=== PATIENT | female | born 1980 | race Caucasian/White ===

== ENCOUNTER → 2019-12-18 10:16 | Outpatient (BNVA) | payer OTHER, SELFPAY | PROVIDERS: PCP Family Medicine; Visit Provider Nurse Practitioner Family | DX: Z20.828 Contact with and (suspected) exposure to other viral communicable diseases (principal); J06.9 Acute upper respiratory infection, unspecified | CPT/HCPCS: 87635 ==

== ENCOUNTER → 2019-12-27 11:07 | Outpatient (BNVA) | payer OTHER, SELFPAY | PROVIDERS: PCP Family Medicine; Visit Provider Nurse Practitioner Family | DX: R05 Cough (principal); Z11.59 Encounter for screening for other viral diseases | CPT/HCPCS: 71046; 87635 ==

== ENCOUNTER → 2020-06-09 13:43 | Outpatient (BNVA) | payer SELFPAY | PROVIDERS: PCP Family Medicine; Visit Provider Nurse Practitioner Family | DX: M25.50 Pain in unspecified joint (principal) | CPT/HCPCS: 80053; 85025; 85651; 86140 ==

== ENCOUNTER → 2020-07-31 08:55 | Outpatient (BNVA) | payer SELFPAY | PROVIDERS: Visit Provider Internal Medicine Rheumatology | DX: M19.041 Primary osteoarthritis, right hand (principal); M19.042 Primary osteoarthritis, left hand; Z79.899 Other long term (current) drug therapy; Z11.59 Encounter for screening for other viral diseases; Z11.1 Encounter for screening for respiratory tuberculosis; B07.9 Viral wart, unspecified; F17.210 Nicotine dependence, cigarettes, uncomplicated | CPT/HCPCS: 99204 ==

== ENCOUNTER 2020-07-31 10:29 | Outpatient (CLI) | payer SELFPAY ==
--- NOTE | 2020-07-31 10:42 | XR_ITS ---
WS: [id number] Pelvis, AP view, 07/31/2020 Clinical Data: Z79.899 - Other intermediate teacher (current) drug therapy Comparison: None. Findings: No fractures or dislocations are seen. The SI joints and pubic symphysis are intact. The soft tissues are not remarkable. Fallopian tube closure devices are present. The hips show prominent acetabular lips. XR/XR pelvis 1-2V* 14980 Impression: Minimal arthritic change of the acetabula of both hips.
--- NOTE | 2020-07-31 10:42 | XR_ITS ---
WS: [id number] Left foot, 3 views, 07/31/2020 Clinical Data: Z79.899 - Other lobsterman (current) drug therapy Comparison: None. Findings: No fractures or dislocations are seen. No bone destruction or erosion is noted. The joint spaces and soft tissues are normal. No periarticular demineralization or calcifications are seen. XR/XR foot LT min 3V* [id number] Impression: Negative left foot.
--- NOTE | 2020-07-31 10:42 | XR_ITS ---
WS: [id number] Right hand, 3 views, 07/31/2020 Clinical Data: Z79.899 - Other assisted (current) drug therapy Comparison: None. Findings: No fractures or dislocations are seen. The soft tissues are unremarkable. The joint space s are normal No periarticular demineralization or calcifications are seen. XR/XR hand RT min 3V* [id number] Impression: Negative right hand.
--- NOTE | 2020-07-31 10:42 | XR_ITS ---
WS: [id number] Right foot, 3 views, 07/31/2020 Clinical Data: Z79.899 - Other custodial (current) drug therapy Comparison: None. Findings: No fractures or dislocations are seen. No bone destruction or erosion is noted. The joint spaces and soft tissues are normal. No periosteal demineralization or calcifications are seen. XR/XR foot RT min 3V* 60749 Impression: Negative right foot.
--- NOTE | 2020-07-31 10:42 | XR_ITS ---
WS: [id number] Left hand, 3 views, 07/31/2020 Clinical Data: Z79.899 - Other medical terminologist (current) drug therapy Comparison: None. Findings: No fractures or dislocations are seen. The soft tissues are unremarkable. The joint spaces are normal No periarticular demineralization or calcifications are seen. XR/XR hand LT min 3V* [id number] Impression: Negative left hand.
[2020-07-31 12:01] LABS: 25 Hydroxy Vitamin D 11 ng/mL (30-100); C Reactive Protein 4.9 mg/L (0.0-4.9)
[2020-07-31 12:16] LABS: Erythrocyte Sedimentation Rate 22 mm/hr (0-15)
[2020-07-31 12:24] LABS: Hepatitis B Core AB, Total Non-Reactive (Nonreactive); Hepatitis B Surface Antigen Non-Reactive (Nonreactive); Hepatitis C Virus Antibody Non-Reactive (Nonreactive)
[2020-08-01 12:17] LABS: Cyclic Citrullinated Peptide <16 UNITS
[2020-08-01 13:58] LABS: Anti-Nuclear Antibody Screen NEGATIVE (NEGATIVE)
[2020-08-02 12:58] LABS: Quantiferon Mitogen 8.34 IU/mL; Quantiferon Nil 0.01 IU/mL; Quantiferon TB Gold NEGATIVE (NEGATIVE)
== END 2020-07-31 10:30 | disposition home or self-care (01) ==
PROVIDERS: Visit Provider Internal Medicine Rheumatology
DX: Z79.899 Other long term (current) drug therapy (principal); Z11.59 Encounter for screening for other viral diseases; Z11.1 Encounter for screening for respiratory tuberculosis
CPT/HCPCS: 36415; 72170; 73130; 73630; 82306; 85651; 86038; 86140; 86431; 86480; 86704; 86803; 87340

== ENCOUNTER → 2020-09-02 14:51 | Outpatient (BNVA) | payer SELFPAY | PROVIDERS: Visit Provider Internal Medicine Rheumatology | DX: M19.041 Primary osteoarthritis, right hand (principal); M19.042 Primary osteoarthritis, left hand; Z79.899 Other long term (current) drug therapy; B07.9 Viral wart, unspecified; F17.210 Nicotine dependence, cigarettes, uncomplicated | CPT/HCPCS: 99214 ==

== ENCOUNTER → 2020-12-25 13:23 | Outpatient (BNVA) | payer MEDICAID, SELFPAY | PROVIDERS: Visit Provider Internal Medicine Rheumatology | DX: M19.90 Unspecified osteoarthritis, unspecified site (principal); Z79.899 Other long term (current) drug therapy | CPT/HCPCS: 80076; 82565; 85025; 86140 ==

== ENCOUNTER → 2021-01-01 12:59 | Outpatient (BNVA) | payer MEDICAID, SELFPAY | PROVIDERS: Visit Provider Internal Medicine Rheumatology | DX: M19.041 Primary osteoarthritis, right hand (principal); M19.042 Primary osteoarthritis, left hand; M25.50 Pain in unspecified joint; Z79.899 Other long term (current) drug therapy; B07.9 Viral wart, unspecified; F17.210 Nicotine dependence, cigarettes, uncomplicated | CPT/HCPCS: 99214 ==

== ENCOUNTER → 2021-01-27 14:29 | Outpatient (BNVA) | payer MEDICAID, SELFPAY | PROVIDERS: Visit Provider Nurse Practitioner Family | DX: Z20.822 Contact with and (suspected) exposure to COVID-19 (principal) | CPT/HCPCS: 87635 ==

== ENCOUNTER → 2021-02-02 09:53 | Outpatient (BNVA) | payer MEDICAID, SELFPAY | PROVIDERS: Visit Provider Internal Medicine Rheumatology | DX: M19.90 Unspecified osteoarthritis, unspecified site (principal); Z79.899 Other long term (current) drug therapy | CPT/HCPCS: 80076; 82565; 85025; 86140 ==

== ENCOUNTER → 2021-04-28 09:26 | Outpatient (BNVA) | payer MEDICAID, SELFPAY | PROVIDERS: Visit Provider Internal Medicine Rheumatology | DX: M19.90 Unspecified osteoarthritis, unspecified site (principal); Z79.899 Other long term (current) drug therapy | CPT/HCPCS: 80076; 82565; 85025; 86140 ==

== ENCOUNTER → 2021-05-05 13:53 | Outpatient (BNVA) | payer MEDICAID, SELFPAY | PROVIDERS: Visit Provider Internal Medicine Rheumatology | DX: M19.90 Unspecified osteoarthritis, unspecified site (principal); M06.041 Rheumatoid arthritis without rheumatoid factor, right hand; M06.042 Rheumatoid arthritis without rheumatoid factor, left hand; Z79.899 Other long term (current) drug therapy; Z79.52 Long term (current) use of systemic steroids; B07.9 Viral wart, unspecified; F15.21 Other stimulant dependence, in remission; Z71.85 Encounter for immunization safety counseling | CPT/HCPCS: 99214 ==

== ENCOUNTER → 2021-05-15 13:48 | Outpatient (BNVA) | payer OTHER, MEDICAID, SELFPAY | PROVIDERS: Visit Provider Psychiatry & Neurology Psychiatry | DX: F33.42 Major depressive disorder, recurrent, in full remission (principal); F90.0 Attention-deficit hyperactivity disorder, predominantly inattentive type; G47.33 Obstructive sleep apnea (adult) (pediatric); F15.21 Other stimulant dependence, in remission; F17.210 Nicotine dependence, cigarettes, uncomplicated | CPT/HCPCS: 99214 ==

== ENCOUNTER → 2021-06-03 08:43 | Outpatient (BNVA) | payer MEDICAID, SELFPAY | PROVIDERS: Visit Provider Nurse Practitioner Family | DX: M19.90 Unspecified osteoarthritis, unspecified site (principal); Z79.899 Other long term (current) drug therapy; M06.041 Rheumatoid arthritis without rheumatoid factor, right hand; M06.042 Rheumatoid arthritis without rheumatoid factor, left hand | CPT/HCPCS: 80076; 82565; 85025; 86140 ==

== ENCOUNTER → 2021-06-12 11:06 | Outpatient (BNVA) | payer OTHER, MEDICAID, SELFPAY | PROVIDERS: Visit Provider Psychiatry & Neurology Psychiatry | DX: F33.42 Major depressive disorder, recurrent, in full remission (principal); F90.0 Attention-deficit hyperactivity disorder, predominantly inattentive type; G47.33 Obstructive sleep apnea (adult) (pediatric); F17.210 Nicotine dependence, cigarettes, uncomplicated | CPT/HCPCS: 99214 ==

== ENCOUNTER → 2021-08-07 14:02 | Outpatient (BNVA) | payer OTHER, MEDICAID, SELFPAY | PROVIDERS: Visit Provider Psychiatry & Neurology Psychiatry | DX: F33.42 Major depressive disorder, recurrent, in full remission (principal); F90.0 Attention-deficit hyperactivity disorder, predominantly inattentive type; F15.21 Other stimulant dependence, in remission; G47.33 Obstructive sleep apnea (adult) (pediatric); F17.210 Nicotine dependence, cigarettes, uncomplicated | CPT/HCPCS: 99214 ==

== ENCOUNTER 2021-08-17 22:22 | Emergency (ER) | payer MEDICAID, SELFPAY ==
[2021-08-17 22:26] VITALS: BP 137/82; PULSE 100; RESP 22; TEMP 36.4; O2SAT 97; BMI 33.8
--- NOTE | 2021-08-17 22:31 | W.ED.SOB ---
HPI - SOB/Dyspnea General: Chief Complaint: Shortness of Breath/Dyspnea Stated Complaint: lungs hurting, SOB Time Seen by Provider: 08/17/21 22:30 History of Present Illness: HPI Narrative: 40-year-old female comes in today for complaints of chest pain on deep inspiration. Patient noticed that the pain started this evening when she took a deep breath occurring in the right posterior rib area. Patient appears in mild to no pain at rest. Patient appears nontoxic. Patient does have a history of rheumatoid arthritis in which she takes hydroxychloroquine, methotrexate. Patient was also on doxycycline for a sinus infection. Review of patient history she has chronic steroid use, rheumatoid arthritis, major depression, substance use disorder of psychostimulants, ADHD. Associated symptoms: Reports chest pain; Deny fever(s), hemoptysis, nausea or vomiting Review of Systems General: Reports: 10 or more systems reviewed and unremarkable except in HPI and below Const: Denies: fever(s) ENMT: Reports: sinus pain Card: Reports: chest pain Resp: Denies: dyspnea or hemoptysis GI: Denies: nausea or vomiting [facility] ED PFSH: Medical History Amphetamine and other psychostimulant dependence, in remission Attention-deficit hyperactivity disorder, predominantly inattentive type Chronic steroid use Cigarette nicotine dependence High risk medication use Immunization counseling Inflammatory arthritis Major depressive disorder, recurrent, in full remission Obstructive sleep apnea Osteoarthritis of hands, bilateral Psychiatric care Seronegative rheumatoid arthritis of both hands Viral wart on finger Family History Mother Graves disease Other Cancer Chronic kidney disease (CKD) Diabetes Denies family history of Rheumatoid arthritis Lupus CAD (coronary artery disease) Hyperlipidemia Lung disease Hypertension Stroke Social History Smoking and tobacco status: current every day smoker cigarettes Packs smoked per day: 1 Years cigarettes smoked: 20 Quit status (tobacco): not considering quitting Second hand smoke exposure: No Smoking risk assessment/counseling performed?: No Reason smoking risk assessment not done: other Alcohol intake: never Lives independently: Yes Household members: children Marital status: Current occupational status: employed Current occupation: [employer] History of recent travel: No Current gender identity: Female Special kimberly needs: No Agree to transfusion: Yes Physical Exam Const: COMMON NORMALS: alert HENMT: COMMON NORMALS: normocephalic HEAD & SCALP: normocephalic Neck/C-Spine: COMMON NORMALS: full ROM Chest: COMMONS NORMALS: normal palpation of entire chest wall Resp: COMMON NORMALS: clear to auscultation bilaterally AUSCULTATION: clear to auscultation bilaterally Cardio: COMMON NORMALS: regular rate and regular rhythm RATE: regular rate RHYTHM: regular rhythm Back/Pelvis: COMMON NORMALS: thoracic and lumbar spine normal to inspection Neuro: SENSORIUM/ORIENTATION: Yes alert Skin: COMMON NORMALS: no rashes or lesions noted GENERAL SKIN EXAM: no rashes or lesions noted Course Vital Signs: Vital signs: Vital Signs Temperature 97.6 F 08/17/21 22:26 Pulse Rate 100 08/17/21 22:26 Respiratory Rate 22 H 08/17/21 22:26 Blood Pressure 137/82 08/17/21 22:26 Pulse Oximetry 97 08/17/21 22:26 MDM - SOB/Dyspnea Medical Decision Making 40-year-old female comes in today with complaints of right posterior chest wall pain with inspiration. On exam lungs are decreased in the bases. Skin was warm and dry. Vital signs were normal. Differential diagnosis includes pneumonia, pleurisy, costochondritis. Laboratory values noted a white count of 19,000 which is similar to previous labs done in May this is probably due to patient's prednisone and other medication she takes for her rheumatoid like arthritis. CMP was unremarkable. D-dimer was negative. And troponin was in normal range. Chest x-ray was normal. Reviewed with patient recommendations for treatment with acetaminophen for pain. Recommended to monitor for fever, increasing shortness of breath, or new concerns. Patient is presently on doxycycline for sinusitis. Patient reported understanding and agreed with plan. Lab Data : 08/17/21 23:25 08/17/21 23:25 Labs/Radiology: Radiology Impressions Chest X-Ray 08/17/21 22:36 IMPRESSION: No acute findings. Laboratory Results WBC 19.7 10^3/uL (4.0-10.0) H 08/17/21 23:25 RBC 4.30 10^6/uL (4.1-5.3) 08/17/21 23:25 Hgb 14.0 g/dL (11.5-15.3) 08/17/21: Hct 42.1 % (37.0-47.0) 08/17/21: MCV 97.9 fl (81-99) 08/17/21: MCH 32.6 pg (28.0-34.0) 08/17/21: MCHC 33.3 g/dL (30.0-36.0) 08/17/21: RDW 13.9 % (12.1-15.1) 08/17/21: Plt Count 458 10^3/cmm (130-400) H 08/17/21: MPV 9.9 fL (7.4-10.4) 08/17/21: Neut % (Auto) 62.3 % 08/17/21: Lymph % (Auto) 28.2 % 08/17/21: Ballard % (Auto) 4.8 % 08/17/21: Eos % (Auto) 3.0 % 08/17/21: Baso % (Auto) 1.0 % 08/17/21 Neut # (Auto) 12.29 10^3/uL (1.8-7.7) H 08/17/21: Lymph # (Auto) 5.6 10^3/uL (0.8-4.8) H 08/17/21: Ball[place] # (Auto) 1.0 10^3/uL (0.2-0.9) H 08/17/21: Eos # (Auto) 0.6 10^3/uL (0.0-0.8) 08/17/21: Baso # (Auto) 0.2 10^3/uL (0.0-0.1) H 08/17/21: Nucleated RBC % (auto) 0 % 08/17/21 Nucleated RBCs # 0.0 /100WBC 08/17/21: D-Dimer 0.42 ug/mIFEU (0-0.59) 08/17/21: Sodium 136 mmol/L (136-145) 08/17/21: Potassium 3.4 mmol/L (3.5-5.1) L 08/17/21 23:25 Chloride 101 mmol/L (98-107) 08/17/21 23:25 Carbon Dioxide 22 mmol/L (22-29) 08/17/21 23:25 Anion Gap 16.4 (5-19) 08/17/21 23:25 BUN 3 mg/dL (6-20) L 08/17/21 23:25 Creatinine 0.6 mg/dL (0.5-0.9) 08/17/21 23:25 GFR Calculation 110.2 mL/min (90-130) 08/17/21 23:25 Glucose 115 mg/dL (65-115) 08/17/21 23:25 Calculated Osmolality 279 mOsm/kg (285-295) L 08/17/21:25 Calcium 9.1 mg/dL (8.5-10.5) 08/17/21:25 Total Bilirubin 0.2 mg/dL (0.15-1.2) 08/17/21:25 AST 22 U/L (0-32) 08/17/21 23:25 ALT 33 U/L (0-33) 08/17/21 23:25 Alkaline Phosphatase 88 IU/L (35-105) 08/17/21 23:25 Troponin T Gen 5 ng/L 6 ng/L (0-10) 08/17/21 23:25 Total Protein 6.5 g/dL (6.6-8.7) L 08/17/21:25 Albumin 4.3 g/dL (3.5-5.2) 08/17/21: Globulin 2.2 g/dL (1.3-4.6) 08/17/21 23:25 EKG Data EKG 1: EKG Interpretation Date: 08/17/21 EKG interpretation time: 23:29 Interpretation: EKG shows a sinus rhythm with a regular rate at [address] elevation or ectopy is noted. No prior exam was available for comparison. Discharge Plan Discharge Patient Disposition: Home Clinical Impression: Pleurisy without effusion Condition: Stable Prescriptions: No Action albuterol sulfate [ProAir HFA] 90 mcg/actuation HFA aerosol inhaler 2 puff INHALATION QID Qty: 18 1RF cholecalciferol (vitamin D3) 50 mcg (2,000 unit) tablet 2,000 unit PO DAILY Qty: 90 1RF hydroxychloroquine 200 mg tablet 200 mg PO BID Qty: 180 1RF prednisone 5 mg tablet 5 mg PO DAILY Qty: 90 1RF venlafaxine [Effexor XR] 75 mg capsule,extended release 24hr 225 mg PO QAM Qty: 90 11RF methylphenidate HCl [Concerta] 36 mg tablet extended release 24hr 72 mg PO QAM 30 Days Qty: 60 0RF methylphenidate HCl [Concerta] 36 mg tablet extended release 24hr 72 mg PO QAM 30 Days Qty: 60 0RF doxycycline hyclate 100 mg capsule 100 mg PO BID 7 Days Qty: 14 0RF prednisone 20 mg tablet See Rx Instructions PO .COMPLEX PRN (Reason: joint pain) Qty: 30 1RF Rx Instructions: take 1 tab daily for 5-7 days as needed for joint pain flare PO PRN; methotrexate sodium 25 mg/mL solution 25 mg IM .weekly Qty: 10 1RF (DME) Monoject TB Safety Syringe 1 mL 25 gauge x 5/8 syringe See Rx Instructions .Route Qty: 50 1RF Rx Instructions: As directed folic acid 1 mg tablet 1 mg PO DAILY Qty: 90 1RF Discharge Orders: Discharge ED (Routine); Ordered 08/18/21 Ordered By: Reji Ty Referrals: Montrell Whaley [Primary Care Provider] - Discharge Diet: Usual diet Discharge Activity: Increase activity as tolerated Patient Instructions: Chest Wall Pain (ED) Activity Restrictions/Additional Instructions: Drink plenty of fluids. Continue with routine care. Use acetaminophen for pain. Follow-up with primary care for further instruction. Return to ER for symptoms such as high fever, worsening pain, increased shortness of breath, or new concerns. Coding Level of Care Code ED Resort Host for [facility] Fwd Exam Comprehensive
--- NOTE | 2021-08-17 22:36 | XRR_ITS ---
PROCEDURE INFORMATION: Exam: XR Chest Exam date and time: 08/17/2021 10:59 PM Age: 40 years old Clinical indication: Pain; Dyspnea; On breathing; Additional info: Right side pleuritic pain TECHNIQUE: Imaging protocol: XR of the chest. Views: 2 views. COMPARISON: CR XR chest 2V* [id number] 12/27/2019 11:14 AM FINDINGS: Lungs: Unremarkable. No consolidation. Pleural spaces: Unremarkable. No pleural effusion. No pneumothorax. Heart/Mediastinum: Unremarkable. No cardiomegaly. Bones/joints: Unremarkable. XR/XR chest 2V* [id number] IMPRESSION: No acute findings.
--- NOTE | 2021-08-17 22:40 | ECG_ITS ---
[facility] Test Date: 2021-08-17 Pat Name: Zayra Bland Department: Room: Gender: Female Blintze Roller: : 1980 Requested By: Reji Gilbert Order Number: [id number] Azucena MD: Lisa Tsai M.D. Measurements Intervals [place] Rate: 100 P: 72 FL: 122 QRS: 80 QRSD: 77 T: 77 QT: 348 QTc: 449 Interpretive Statements SINUS TACHYCARDIA NONSPECIFIC T-WAVE ABNORMALITY ABNORMAL RHYTHM ECG No previous ECG available for comparison Electronically Signed On 08-18-2021 18:55:23 CDT by Lisa Tsai M.D. [id number]
[2021-08-17 23:42] LABS: Basophils # 0.2 10^3/uL (0.0-0.1); Eosinophils # 0.6 10^3/uL (0.0-0.8); Hematocrit 42.1 % (37.0-47.0); Lymphocytes # 5.6 10^3/uL (0.8-4.8); Lymphocytes % 28.2 %; Mean Corpuscular HGB Conc 33.3 g/dL (30.0-36.0); Mean Corpuscular Hemoglobin 32.6 pg (28.0-34.0); Mean Corpuscular Volume 97.9 fl (81-99); Mean Platelet Volume 9.9 fL (7.4-10.4); Monocytes % 4.8 %; Neutrophils # 12.29 10^3/uL (1.8-7.7); Neutrophils % 62.3 %; Nucleated Red Blood Cells % 0 %; Platelet Count 458 10^3/cmm (130-400); Red Cell Distribution Width 13.9 % (12.1-15.1); White Blood Count 19.7 10^3/uL (4.0-10.0)
[2021-08-18] LABS: D Dimer 0.42 ug/mIFEU (0-0.59)
[2021-08-18 00:05] LABS: Alanine Aminotransferase 33 U/L (0-33); Albumin Level 4.3 g/dL (3.5-5.2); Alkaline Phosphatase 88 IU/L (35-105); Anion Gap 16.4 (5-19); Aspartate Amino Transferase 22 U/L (0-32); Blood Urea Nitrogen 3 mg/dL (6-20); Calcium 9.1 mg/dL (8.5-10.5); Carbon Dioxide 22 mmol/L (22-29); Chloride 101 mmol/L (98-107); Globulin 2.2 g/dL (1.3-4.6); Glomerular Filtration Rate 110.2 mL/min (90-130); Glucose 115 mg/dL (65-115); Osmolality Calculated 279 mOsm/kg (285-295); Potassium 3.4 mmol/L (3.5-5.1); Sodium 136 mmol/L (136-145); Total Bilirubin 0.2 mg/dL (0.15-1.2); Total Protein 6.5 g/dL (6.6-8.7)
[2021-08-18 00:08] LABS: Troponin T (5th) Once 6 ng/L (0-10)
[2021-08-18 00:26] VITALS: BP 107/59; PULSE 97; RESP 16; TEMP 36.9; O2SAT 99
== END 2021-08-18 00:29 | disposition home or self-care (01) ==
PROVIDERS: Emergency Provider Nurse Practitioner Family
DX: R09.1 Pleurisy (principal)
CPT/HCPCS: 71046; 80053; 84484; 85025; 85378; 93005; 99283

== ENCOUNTER → 2021-08-28 08:56 | Outpatient (BNVA) | payer MEDICAID, SELFPAY | PROVIDERS: Visit Provider Internal Medicine Rheumatology | DX: M19.90 Unspecified osteoarthritis, unspecified site (principal); Z79.899 Other long term (current) drug therapy; M06.041 Rheumatoid arthritis without rheumatoid factor, right hand; M06.042 Rheumatoid arthritis without rheumatoid factor, left hand; Z71.85 Encounter for immunization safety counseling | CPT/HCPCS: 80076; 82565; 85025; 86140 ==

== ENCOUNTER → 2021-09-01 13:02 | Outpatient (BNVA) | payer MEDICAID, SELFPAY | PROVIDERS: Visit Provider Internal Medicine Rheumatology | DX: M06.041 Rheumatoid arthritis without rheumatoid factor, right hand (principal); M06.042 Rheumatoid arthritis without rheumatoid factor, left hand; Z79.899 Other long term (current) drug therapy; Z79.52 Long term (current) use of systemic steroids; B07.8 Other viral warts; F15.21 Other stimulant dependence, in remission; Z71.85 Encounter for immunization safety counseling | CPT/HCPCS: 99214 ==

== ENCOUNTER → 2021-10-05 15:45 | Outpatient (BNVA) | payer OTHER, SELFPAY | PROVIDERS: Visit Provider Nurse Practitioner | DX: R00.0 Tachycardia, unspecified (principal); E04.9 Nontoxic goiter, unspecified; E66.9 Obesity, unspecified | CPT/HCPCS: 80061; 84439; 84443; 84481 ==

== ENCOUNTER → 2022-01-01 09:06 | Outpatient (BNVA) | payer OTHER, SELFPAY | PROVIDERS: Visit Provider Internal Medicine Rheumatology | DX: M06.041 Rheumatoid arthritis without rheumatoid factor, right hand (principal); M06.042 Rheumatoid arthritis without rheumatoid factor, left hand; Z79.899 Other long term (current) drug therapy | CPT/HCPCS: 80076; 82565; 85025; 86140 ==

== ENCOUNTER → 2022-02-23 13:33 | Outpatient (BNVA) | payer MEDICAID, SELFPAY | PROVIDERS: Visit Provider Nurse Practitioner | DX: R00.0 Tachycardia, unspecified (principal); R73.9 Hyperglycemia, unspecified | CPT/HCPCS: 80053; 83036; 84443 ==

== ENCOUNTER → 2022-04-19 08:16 | Outpatient (BNVA) | payer MEDICAID, SELFPAY | PROVIDERS: Visit Provider Internal Medicine Rheumatology | DX: M06.041 Rheumatoid arthritis without rheumatoid factor, right hand (principal); M06.042 Rheumatoid arthritis without rheumatoid factor, left hand; Z79.899 Other long term (current) drug therapy | CPT/HCPCS: 80076; 82565; 85025; 86140 ==

== ENCOUNTER → 2022-07-15 14:11 | Outpatient (BNVA) | payer MEDICAID, SELFPAY | PROVIDERS: PCP Nurse Practitioner; Visit Provider Internal Medicine Rheumatology | DX: M19.90 Unspecified osteoarthritis, unspecified site (principal); Z79.899 Other long term (current) drug therapy | CPT/HCPCS: 80076; 82565; 85025; 86140 ==

== ENCOUNTER → 2022-09-23 09:01 | Outpatient (BNVA) | payer MEDICAID, SELFPAY | PROVIDERS: PCP Nurse Practitioner; Visit Provider Nurse Practitioner Family | DX: J02.9 Acute pharyngitis, unspecified (principal) | CPT/HCPCS: 87071; 87880 ==

== ENCOUNTER → 2022-10-14 08:11 | Outpatient (BNVA) | payer OTHER, SELFPAY | PROVIDERS: PCP Nurse Practitioner; Visit Provider Internal Medicine Rheumatology | DX: M06.041 Rheumatoid arthritis without rheumatoid factor, right hand (principal); M06.042 Rheumatoid arthritis without rheumatoid factor, left hand; Z79.899 Other long term (current) drug therapy | CPT/HCPCS: 80076; 82565; 85025; 86140 ==

== ENCOUNTER → 2023-01-17 11:20 | Outpatient (BNVA) | payer MEDICAID, SELFPAY | PROVIDERS: PCP Nurse Practitioner; Visit Provider Nurse Practitioner | DX: E78.2 Mixed hyperlipidemia (principal); R00.0 Tachycardia, unspecified; M19.90 Unspecified osteoarthritis, unspecified site; Z79.899 Other long term (current) drug therapy | CPT/HCPCS: 80053; 80061; 80076; 82565; 85025; 86140 ==

== ENCOUNTER → 2023-01-18 10:22 | Outpatient (BNVA) | payer MEDICAID, SELFPAY | PROVIDERS: PCP Nurse Practitioner; Visit Provider Internal Medicine Rheumatology | DX: M54.9 Dorsalgia, unspecified (principal); M06.041 Rheumatoid arthritis without rheumatoid factor, right hand; M06.042 Rheumatoid arthritis without rheumatoid factor, left hand; Z71.85 Encounter for immunization safety counseling; Z79.899 Other long term (current) drug therapy | CPT/HCPCS: 72100 ==

== ENCOUNTER 2023-02-21 06:00 | Outpatient (RCR) | payer MEDICAID, SELFPAY | END 2023-02-24 23:59 | disposition home or self-care (01) | LOC: APT 06:00 | PROVIDERS: Visit Provider Internal Medicine Rheumatology | DX: M54.9 Dorsalgia, unspecified (principal); G89.29 Other chronic pain | CPT/HCPCS: 97161 ==

== ENCOUNTER 2023-02-25 06:00 | Outpatient (RCR) | payer MEDICAID, SELFPAY | END 2023-03-27 23:59 | disposition home or self-care (01) | LOC: APT 06:00 | PROVIDERS: Visit Provider Internal Medicine Rheumatology | DX: M54.9 Dorsalgia, unspecified (principal); G89.29 Other chronic pain | CPT/HCPCS: 97110; 97530 ==

== ENCOUNTER 2023-03-28 06:00 | Outpatient (RCR) | payer MEDICAID, SELFPAY | END 2023-04-27 23:59 | disposition home or self-care (01) | LOC: APT 06:00 | PROVIDERS: Visit Provider Internal Medicine Rheumatology | DX: M54.9 Dorsalgia, unspecified (principal); G89.29 Other chronic pain | CPT/HCPCS: 97110; 97530 ==

== ENCOUNTER → 2023-04-24 10:27 | Outpatient (BNVA) | payer MEDICAID, SELFPAY | PROVIDERS: Visit Provider Nurse Practitioner | DX: J06.9 Acute upper respiratory infection, unspecified (principal) | CPT/HCPCS: 87400 ==

== ENCOUNTER → 2023-06-07 09:25 | Outpatient (BNVA) | payer MEDICAID, SELFPAY | PROVIDERS: Visit Provider Nurse Practitioner | DX: R00.0 Tachycardia, unspecified (principal); E78.2 Mixed hyperlipidemia | CPT/HCPCS: 80053; 80061; 84443 ==

== ENCOUNTER 2023-07-05 13:59 | Outpatient (CLI) | payer MEDICAID, SELFPAY ==
--- NOTE | 2023-07-05 14:00 | MM_ITS ---
WS: [id number] BILATERAL 3D TOMOSYNTHESIS DIGITAL SCREENING MAMMOGRAPHY WITH CAD CLINICAL INFORMATION: SCREENING HISTORY: Screening mammogram. No current complaints. COMPARISON: Baseline TECHNIQUE: Bilateral CC and MLO views. FINDINGS: Scattered fibroglandular densities bilaterally. No suspicious focal mass, asymmetry, calcifications, or architectural distortion. No evidence of malignancy. Incidental calcifications RIGHT breast. IMPRESSION: MM/[place] [id number] BI-RADS: 2-Benign FOLLOW UP: 1 Year Follow-up Recommend return to annual screening mammography.
--- NOTE | 2023-07-05 15:38 | US_ITS ---
WS: [id number] THYROID ULTRASOUND HISTORY: E04.9 - Nontoxic goiter, unspecified COMPARISON: None available. Right lobe: 2.2 cm x 1.5 cm x 4.2 cm (w x ap x l). Volume: 6.9 cm3. Normal size and echotexture. No significant are dominant nodules are present. Left lobe: 1.8 cm x 1.5 cm x 4.0 cm (w x ap x l). Volume: 5.5 cm3. Normal size and echotexture. No significant or dominant nodules are present. Isthmus: 0.3 cm. IMPRESSION: Normal thyroid ultrasound.
== END 2023-07-05 14:00 | disposition home or self-care (01) ==
LOC: MOBLMAM 14:02
PROVIDERS: PCP Nurse Practitioner; Visit Provider Nurse Practitioner
DX: Z12.31 Encounter for screening mammogram for malignant neoplasm of breast; E04.9 Nontoxic goiter, unspecified; R92.323 Mammographic fibroglandular density, bilateral breasts
CPT/HCPCS: 76536; 77063; 77067

== ENCOUNTER → 2023-08-30 07:55 | Outpatient (BNVA) | payer MEDICAID, SELFPAY | PROVIDERS: PCP Nurse Practitioner; Visit Provider Internal Medicine Rheumatology | DX: M06.041 Rheumatoid arthritis without rheumatoid factor, right hand (principal); M06.042 Rheumatoid arthritis without rheumatoid factor, left hand; Z79.899 Other long term (current) drug therapy | CPT/HCPCS: 80076; 82565; 85025; 86140 ==

== ENCOUNTER → 2023-11-03 10:22 | Outpatient (BNVA) | payer MEDICAID, SELFPAY | PROVIDERS: PCP Nurse Practitioner; Visit Provider Nurse Practitioner | DX: E78.2 Mixed hyperlipidemia (principal) | CPT/HCPCS: 80053; 80061 ==

== ENCOUNTER → 2024-03-11 10:36 | Outpatient (BNVA) | payer MEDICAID, SELFPAY | PROVIDERS: PCP Nurse Practitioner | DX: S52.135A Nondisplaced fracture of neck of left radius, initial encounter for closed fracture (principal); X58.XXXA Exposure to other specified factors, initial encounter; M19.022 Primary osteoarthritis, left elbow | CPT/HCPCS: 73080 ==

== ENCOUNTER → 2024-03-23 12:48 | Outpatient (BNVA) | payer MEDICAID, SELFPAY | PROVIDERS: PCP Nurse Practitioner; Visit Provider Student in an Organized Health Care Education/Training Program | DX: S52.122A Displaced fracture of head of left radius, initial encounter for closed fracture (principal); M19.022 Primary osteoarthritis, left elbow; M06.9 Rheumatoid arthritis, unspecified; X58.XXXA Exposure to other specified factors, initial encounter | CPT/HCPCS: 73080 ==

== ENCOUNTER → 2024-04-09 11:56 | Outpatient (BNVA) | payer MEDICAID, SELFPAY | PROVIDERS: PCP Nurse Practitioner; Visit Provider Internal Medicine Rheumatology | DX: M06.041 Rheumatoid arthritis without rheumatoid factor, right hand (principal); M06.042 Rheumatoid arthritis without rheumatoid factor, left hand; Z79.899 Other long term (current) drug therapy | CPT/HCPCS: 36415; 80076; 82565; 85025; 85651; 86140 ==

== ENCOUNTER → 2024-04-24 13:43 | Outpatient (BNVA) | payer MEDICAID, SELFPAY | PROVIDERS: PCP Nurse Practitioner; Visit Provider Student in an Organized Health Care Education/Training Program | DX: S52.122A Displaced fracture of head of left radius, initial encounter for closed fracture (principal); M25.522 Pain in left elbow; X58.XXXA Exposure to other specified factors, initial encounter; M06.9 Rheumatoid arthritis, unspecified; R03.0 Elevated blood-pressure reading, without diagnosis of hypertension | CPT/HCPCS: 73080 ==

== ENCOUNTER 2024-07-26 09:22 | Outpatient (CLI) | payer MEDICAID, SELFPAY ==
--- NOTE | 2024-07-26 09:30 | CT_ITS ---
WS: [id number] CT scan of the sinuses without IV contrast. Additional two-dimensional coronal and sagittal reconstruction was performed. 07/26/2024 Clinical Data: recurrent chronic sinusitis and middle ear effusion Comparison: None. DLP: 354.[address] scans at [facility] use at least one of these dose optimization techniques: automated exposure control; mA and/or kV adjustment per patient size (includes targeted exams where dose is matched to clinical indication); or iterative reconstruction. Findings: There is minimal mucoperiosteal thickening of the sphenoid sinuses. The remainder of the sinuses is clear. No air-fluid levels are noted. The orbits are intact. The nasal bones are unremarkable. The intraorbital contents show no abnormalities. CT/CT sinus wo con* [id number] Impression: Minimal mucoperiosteal thickening of the sphenoid sinuses consistent with chron ic sinusitis.
== END 2024-07-26 09:23 | disposition home or self-care (01) ==
PROVIDERS: PCP Nurse Practitioner; Visit Provider Emergency Medicine
DX: J32.9 Chronic sinusitis, unspecified (principal)
CPT/HCPCS: 70486

== ENCOUNTER → 2024-08-27 10:44 | Outpatient (BNVA) | payer MEDICAID, SELFPAY | PROVIDERS: PCP Nurse Practitioner; Visit Provider Internal Medicine Rheumatology | DX: R74.01 Elevation of levels of liver transaminase levels (principal); M06.041 Rheumatoid arthritis without rheumatoid factor, right hand; M06.042 Rheumatoid arthritis without rheumatoid factor, left hand; Z79.899 Other long term (current) drug therapy | CPT/HCPCS: 36415; 80076; 82565; 85025; 85651; 86140; 86480; 86704; 86803; 87340 ==

== ENCOUNTER → 2025-01-10 15:53 | Outpatient (BNVA) | payer MEDICAID, SELFPAY | PROVIDERS: PCP Nurse Practitioner; Visit Provider Nurse Practitioner | DX: J02.9 Acute pharyngitis, unspecified (principal) | CPT/HCPCS: 87071; 87880 ==

== ENCOUNTER 2025-02-10 10:36 | Outpatient (CLI) | payer MEDICAID, SELFPAY ==
--- NOTE | 2025-02-10 11:10 | XRR_ITS ---
PROCEDURE INFORMATION: Exam: XR Right Elbow Exam date and time: 02/10/2025 11:11 AM Age: 44 years old Clinical indication: Pain; Elbow; Right; Additional info: Right elbow injury TECHNIQUE: Imaging protocol: Radiologic exam of the right elbow. Views: 3 or more views. COMPARISON: CR XR hand RT min 3V* [id number] 07/31/2020 10:51 AM FINDINGS: Bones/joints: Normal. Soft tissues: Normal. XR/XR elbow RT min 3V* [id number] IMPRESSION: No acute findings.
== END 2025-02-10 10:37 | disposition home or self-care (01) ==
PROVIDERS: PCP Nurse Practitioner; Visit Provider Emergency Medicine
DX: M25.521 Pain in right elbow (principal)
CPT/HCPCS: 73080